=== PATIENT | female | born 1980 | race Caucasian/White ===

== ENCOUNTER 2017-08-25 18:00 | Inpatient (IN) | payer OTHER ==
--- NOTE | 2017-08-25 18:19 | Emergency Department Report ---
Stated Complaint: ABNORMAL LABS - HPI History of Present Illness: 37-year-old female past medical history none sent by primary care provider for abnormal CBC. Patient is awake alert and oriented 3 accompanied by . Speaks Gambian only. I speak Gambian fluently. CBC provided by patient shows that she had a hemoglobin of 4.3 and hematocrit of 17. Patient denies chest pain but does admit to some skin pallor and some fatigue with exertion. Denies any active vaginal or anal bleeding or bleeding from any orifice. States she did not know she had a history of anemia. Has never had a transfusion in the past. lmp 08/07/17 - ROS Review of Systems: Skin pallor gradually getting worse - Exam Physical Exam: Visible conjunctival pallor on exam MSE screening note: Focused history and physical exam performed. Due to findings the following was ordered: Screening Assessment/Plan/Differential Dx: Symptomatic anemia with low hemoglobin and hematocrit 1- This initial assessment/diagnostic orders/clinical plan/ treatment(s) is/are subject to change based on pt's health status, clinical progression and re- assessment by fellow clinical providers in the ED. Further treatment and workup at subsequent clinical provers discretion. Patient/guardians urged not to elope from ED as their condition may be serious if not clinically assessed and managed. 2-type and screen, CBC, basic labs, EKG, troponin for workup of symptomatic anemia. Patient has no active clinical bleeding on exam. Last menstrual period 08/07/17 3-patient to be seen in the main ED 4-advised patient that she may require transfusions and admission for symptomatic anemia ED Disposition for MSE Condition: Stable
[2017-08-25 18:52] LABS: Red Blood Count 4.14 M/mm3 (3.65-5.03)
[2017-08-25 18:55] LABS: Hematocrit 20.1 % (30.3-42.9); Hemoglobin 4.8 gm/dl (10.1-14.3)
[2017-08-25 18:56] LABS: Mean Corpuscular HGB Conc 24 % (30-34); Mean Corpuscular Hemoglobin 12 pg (28-32); Platelet Count 319 K/mm3 (140-440); Red Cell Distribution Width 23.1 % (13.2-15.2)
[2017-08-25 19:00] LABS: Mean Corpuscular Volume 50 fl (79-97)
[2017-08-25 19:02] LABS: Anion Gap 23 mmol/L; BUN/Creatinine Ratio 23; Blood Urea Nitrogen 7 mg/dL (7-17); Calcium 9.3 mg/dL (8.4-10.2); Carbon Dioxide 21 mmol/L (22-30); Chloride 102.8 mmol/L (98-107); Glucose 110 mg/dL (65-100); Potassium 4.5 mmol/L (3.6-5.0); Sodium 142 mmol/L (137-145)
[2017-08-25 19:19] LABS: Alanine Aminotransferase 9 units/L (7-56); Albumin 4.9 g/dL (3.9-5); Albumin/Globulin Ratio 1.7 %; Alkaline Phosphatase 39 units/L (35-129); Total Protein 7.8 g/dL (6.3-8.2)
[2017-08-25 19:21] LABS: Bilirubin,Direct < 0.2 mg/dL (0-0.2)
[2017-08-25 19:34] LABS: Anisocytosis 2+; Blastocytes % (Manual) 0 %; Eosinophils % (Manual) 0 % (0.0-4.3); Hypochromasia 3+; Microcytosis 3+
[2017-08-25 19:35] LABS: Elliptocytes 1+; Tear Drop Cells 1+
[2017-08-25 19:36] LABS: Diff Status Complete; Large Platelets Few; Platelet Estimate Consistent w Auto; Schistocytes 1+
[2017-08-26] MEDS ORDERED: NACL 0.9% 500 ML 500 ML IV ONE (00:05)
--- NOTE | 2017-08-26 00:22 | Emergency Department Report ---
ED General Adult HPI - General Chief complaint: Recheck/Abnormal Lab/Rx Stated complaint: ABNORMAL LABS Time Seen by Provider: 08/26/17 00:03 Source: patient Mode of arrival: Ambulatory Limitations: No Limitations - History of Present Illness Initial comments: 37 yo female who comes in today due to abnormal labs. She is seen at a medical clinic in [place] ([facility]) and was instructed to come to the ED to have her labs rechecked. On check of her labs her h/h is 4.8/20. The patient denies any hematemesis, vaginal, or anal bleeding. She does admit to excessive ice eating times many years. -: year(s) Consistency: constant Improves with: none Worsens with: none Associated Symptoms: other (none) Treatments Prior to Arrival: none - Related Data Allergies Allergy/AdvReac Type Severity Reaction Status Date / Time No Known Allergies Allergy Verified 08/25/17 18:09 ED Review of Systems ROS: Stated complaint: ABNORMAL LABS Other details as noted in HPI Constitutional: denies: chills, fever Eyes: denies: eye pain, eye discharge, vision change ENT: denies: ear pain, throat pain Respiratory: denies: cough, shortness of breath, wheezing Cardiovascular: denies: chest pain, palpitations Endocrine: no symptoms reported Gastrointestinal: denies: abdominal pain, nausea, diarrhea Genitourinary: denies: urgency, dysuria, discharge Musculoskeletal: denies: back pain, joint swelling, arthralgia Skin: denies: rash, lesions Neurological: denies: headache, weakness, paresthesias Psychiatric: denies: anxiety, depression Hematological/Lymphatic: as per HPI. denies: easy bruising ED Past Medical Hx - Past Medical History Previous Medical History?: No - Surgical History Past Surgical History?: No ED Physical Exam - General Limitations: No Limitations General appearance: alert, in no apparent distress - Head Head exam: Present: atraumatic, normocephalic - Eye Eye exam: Present: normal appearance - ENT ENT exam: Present: mucous membranes moist - Neck Neck exam: Present: normal inspection - Respiratory Respiratory exam: Present: normal lung sounds bilaterally. Absent: respiratory distress - Cardiovascular Cardiovascular Exam: Present: regular rate, normal rhythm. Absent: systolic murmur, diastolic murmur, rubs, gallop - GI/Abdominal GI/Abdominal exam: Present: soft, normal bowel sounds - Rectal Rectal exam: Present: deferred - Extremities Exam Extremities exam: Present: normal inspection - Back Exam Back exam: Present: normal inspection - Neurological Exam Neurological exam: Present: alert, oriented X3 - Psychiatric Psychiatric exam: Present: normal affect, normal mood - Skin Skin exam: Present: warm, dry, intact, normal color. Absent: rash ED Course Vital Signs 08/25/17 08/25/17 08/25/17 18:10 19:46 20:00 Temperature 98.3 F 98.5 F Pulse Rate 88 85 76 Respiratory 18 15 12 Rate Blood Pressure 135/38 119/62 Blood Pressure 129/70 [Right] O2 Sat by Pulse 100 100 100 Oximetry 08/25/17 08/25/17 21:00 22:00 Temperature Pulse Rate 80 79 Respiratory 16 12 Rate Blood Pressure 123/63 118/58 Blood Pressure [Right] O2 Sat by Pulse 100 100 Oximetry - Reevaluation(s) Reevaluation #1: 08/26/17 00:23 Spooning of the nailbed-right thumb ED Medical Decision Making - Lab Data Result diagrams: 08/25/17 18:19 08/25/17 18:19 - EKG Data EKG shows normal: sinus rhythm Rate: normal - EKG Data When compared to previous EKG there are: previous EKG unavailable Interpretation: normal EKG - Medical Decision Making Spooning-right nailbed Iron deficiency anemia - Differential Diagnosis iron deficiency anemia Critical care attestation.: If time is entered above; I have spent that time in minutes in the direct care of this critically ill patient, excluding procedure time. ED Disposition Clinical Impression: Anemia, Nailbed spooning Disposition: OP ADMIT IP TO THIS HOSP Is pt being admited?: Yes Does the pt Need Aspirin: No Condition: Stable Referrals: COLE PRESTON III, MILK DRYING MACHINE OPERATOR-BC [Primary Care Provider] - 3-5 Days Time of Disposition: 00:25
[2017-08-26] MEDS ORDERED: TYLENOL PO PRN (00:57)
[2017-08-26] MEDS ORDERED: MILK OF MAGNESIA PO PRN (00:57)
[2017-08-26] MEDS ORDERED: DULCOLAX PR PRN (00:57)
[2017-08-26] MEDS ORDERED: ZOFRAN IV PRN (00:57)
[2017-08-26] MEDS ORDERED: BENADRYL IV PRN (01:00)
[2017-08-26 01:05] LABS: INR 1.08 (0.87-1.13)
[2017-08-26 01:06] LABS: Partial Thromboplastin Time 28.3 Sec. (24.2-36.6)
--- NOTE | 2017-08-26 01:07 | History and Physical Report ---
History of Present Illness Date of examination: 08/26/17 History of present illness: 37-year-old woman with no medical problems comes emergency room because she was sent here by her primary care physician for abnormal labs. She was noted to have spooning off the nails, hemoglobin was done was low so she came here further evaluation. The patient is asymptomatic. No melena, hematemesis, has menstrual flow for 8 days Review Of Systems: Constitutional: no weight loss Ears, eyes, nose, mouth and throat: no nasal congestion, no nasal discharge, no sinus pressure, blurry vision, diplopia Neck: No neck pain or rigidity. Cardiovascular: No chest pain, palpitations Respiratory: No shortness of breath, cough Gastrointestinal: No abdominal pain, hematochezia Genitourinary : no dysuria, frequency , hematuria Musculoskeletal: no muscle ache Integumentary: no rash, no pruritis Neurological: no parathesias, focal weakness Endocrine: no cold or heat intolerance, no polyuria or polydipsia Hematologic/Lymphatic: no easy bruising, no easy bleeding, no gland swelling Allergic/Immunologic: no urticaria, no angioedema. PAST MEDICAL HISTORY: None PAST SURGICAL HISTORY:none FAMILY HISTORY:hypertension SOCIAL HISTORY:no alcohol, tobacco, alcohol or drugs Medications and Allergies Allergies Allergy/AdvReac Type Severity Reaction Status Date / Time No Known Allergies Allergy Verified 08/25/17 18:09 Active Meds: Active Medications Acetaminophen (Tylenol) 650 mg PO Q4H PRN PRN Reason: Pain MILD(1-3)/Fever >100.5/DON Bisacodyl (Dulcolax) 10 mg NM QDAY PRN PRN Reason: Constipation unrelieved by MOM Diphenhydramine HCl (Benadryl) 25 mg IV Q6H PRN PRN Reason: Itching Magnesium Hydroxide (Milk Of Magnesia) 30 ml PO Q4H PRN PRN Reason: Constipation Ondansetron HCl (Zofran) 4 mg IV Q8H PRN PRN Reason: N/V unrelieved by Reglan Exam - Physical Exam Narrative exam: Gen. appearance: Patient lying in bed in no acute distress HEENT: Normocephalic/atraumatic, pupils equal round reactive to light, extra occular movement intact, no scleral icterus, no JVD or thyromegaly or nodule, neck is supple, mucous membrane moist, no erythema or exudate Heart: S1-S2, regular rate and rhythm Lungs: Clear to auscultation bilateral breathing comfortable Abdomen: Positive bowel sounds, nontender, nondistended, no organomegaly Extremities: No edema, cyanosis, clubbing Neuro:: Oriented 3 , cranial nerves II-12 intact, speech, motor intact Skin: No rash, nodules, warm dry - Constitutional Vitals: Temp Pulse Resp BP Pulse Ox 98.5 F 79 12 118/58 100 08/25/17 19:46 08/25/17 22:00 08/25/17 22:00 08/25/17 22:00 08/25/17 22:00 Results - Labs CBC & Chem 7: 08/25/17 18:19 08/25/17 18:19 Labs: Abnormal lab results 08/25/17 08/25/17 08/25/17 Range/Units 18:19 18:19 18:21 Hgb 4.8 L* (10.1-14.3) gm/dl Hct 20.1 L (30.3-42.9) % MCV 50 L (79-97) fl MCH 12 L (28-32) pg MCHC 24 L (30-34) % RDW 23.1 H (13.2-15.2) % Seg Neuts % (Manual) 74.0 H (40.0-70.0) % Carbon Dioxide 21 L (22-30) mmol/L Creatinine 0.3 L (0.7-1.2) mg/dL Glucose 110 H (65-100) mg/dL Crossmatch See Detail Assessment and Plan Assessment Anemia Plan Transfuse packed red blood cells, premedicate prior to transfusion Check iron studies, DVT prophylaxis Consult hematology
--- NOTE | 2017-08-26 10:45 | Discharge Summary ---
Providers - Providers Date of Admission: 08/26/17 00:57 Attending physician: ELENA HARRINGTON MD 08/26/17 00:57 Consult to Physician [CONS] Routine Consulting Provider: GABINO MICHELLE Reason For Exam: anemia Place consult to:: dr. michelle Notified:: office Phone number called:: Was contact made?: Yes If yes, spoke with:: santa Time called:: 09:24 Primary care physician: COLE PRESTON Hospitalization Reason for admission: acute blood loss anemia Condition: Stable Hospital course: 37-year-old woman with no medical problems comes emergency room because she was sent here by her primary care physician for abnormal labs. She was noted to have spooning off the nails, hemoglobin was done was low so she came here further evaluation. The patient is asymptomatic. No melena, hematemesis, has menstrual flow for 8 days. Patient was transfused with 4 units PRBC and no overt bleeding is noted at this time. A pelvic ultrasound was ordered and patient will discharge her hemoglobin remained stable posttransfusion. Acute Blood loss Anemia Symptomatic Anemia Menorrhagia Disposition: TO HOME OR SELFCARE Time spent for discharge: 35 mins Core Measure Documentation - Palliative Care Palliative Care/ Comfort Measures: Not Applicable - Core Measures Any of the following diagnoses?: none - VTE Discharge Requirements Deep Vein Thrombosis/Pulmonary Embolism Present on Admission: No Exam - Physical Exam Narrative exam: VITAL SIGNS: Reviewed. GENERAL: The patient appeared well nourished and normally developed. Vital signs as documented. HEAD: No signs of head trauma. EYES: Pupils are equal. Extraocular motions intact. EARS: Hearing grossly intact. MOUTH: Oropharynx is normal. NECK: No adenopathy, no JVD. CHEST: Chest with clear breath sounds bilaterally. No wheezes, rales, or rhonchi. CARDIAC: Regular rate and rhythm. S1 and S2, without murmurs, gallops, or rubs. VASCULAR: No Edema. Peripheral pulses normal and equal in all extremities. ABDOMEN: Soft, without detectable tenderness. No sign of distention. No rebound or guarding, and no masses palpated. Bowel Sounds normal. MUSCULOSKELETAL: Good range of motion of all major joints. Extremities without clubbing, cyanosis or edema. NEUROLOGIC EXAM: Alert and oriented x 3. No focal sensory or strength deficits. Speech normal. Follows commands. PSYCHIATRIC: Mood normal. SKIN: No rash or lesions. - Constitutional Vitals: Temp Pulse Resp BP Pulse Ox 99.0 F 78 16 107/48 100 08/26/17 07:45 08/26/17 07:45 08/26/17 07:45 08/26/17 07:45 08/26/17 07:45 Plan Activity: advance as tolerated, fall precautions Diet: regular Special Instructions: record daily weights Follow up with: COLE PRESTON III, MACHINE TOOL TECHNICIAN INSTRUCTOR-BERNARD [Primary Care Provider] - 3-5 Days ANN-MARIE ZAVALETA MD [Staff Physician] - 7 Days Prescriptions: Ferrous Sulfate [Feosol 325 MG tab] 325 mg PO BID #60 tablet
--- NOTE | 2017-08-26 19:28 | Ultrasound Report ---
FINAL REPORT EXAM: US PELVIC COMPLETE HISTORY: MENORRAHGIA TECHNIQUE: Ultrasound pelvis transabdominal PRIORS: None. FINDINGS: The uterus is enlarged measuring 13.1 x 9.5 by 10.8 centimeters. There is a large mass present centrally within the uterus extending to the fundus and through the endometrium measuring 7.8 x 7.2 x 9.0 centimeters probable uterine fibroid or could represent a polyp. Endometrial thickness is 7.25 centimeters Left ovary is 3.8 x 2.3 x 2.9 centimeters and appears unremarkable The right ovary was not identified There is some free fluid present in the cul-de-sac. IMPRESSION: 9 point sent 9 centimeter mass seen centrally within the uterus may reflect fibroid versus large polyp.
[2017-08-26 20:49] VITALS: BP 114/70
== END 2017-08-26 21:15 | disposition home or self-care (01) | DRG 812 ==
LOC: ED 18:00 → 3A 08-26 00:57
PROVIDERS: ADMIT Internal Medicine; ATTEND Internal Medicine
PROC: 30233N1 Transfusion of Nonautologous Red Blood Cells into Peripheral Vein, Percutaneous Approach (ICD-10-PCS; principal; 2017-08-26)
DX: D62 Acute posthemorrhagic anemia (principal); L60.3 Nail dystrophy; Z82.49 Family history of ischemic heart disease and other diseases of the circulatory system
CPT/HCPCS: 36415; 36430; 76856; 80048; 80074; 82728; 83540; 84484; 85007; 85025; 85610; 85730; 86850; 86900; 86901; 86920; 93005; 93010; J1200; J7040; P9016